=== PATIENT | male | born 1970 | race Caucasian/White ===

== ENCOUNTER 2020-10-30 13:59 | Day surgery (SDC) | payer OTHER ==
[2020-10-25 15:57] LABS: BASOPHILS % (AUTO) 0.5 % (0-1); EOSINOPHILS # (AUTO) 0.1 X10'3 (0-0.9); HEMATOCRIT 42.3 % (42.0-52.0); HEMOGLOBIN 14.3 g/dl (14.0-17.9); LYMPHOCYTES # (AUTO) 2.2 X10'3 (1.1-4.8); LYMPHOCYTES % (AUTO) 29.4 % (21-51); MEAN CORPUSCULAR HEMOGLOBIN 31.3 PG (27.0-31.0); MEAN CORPUSCULAR HGB CONC 33.9 g/dL (33.0-36.5); MEAN CORPUSCULAR VOLUME 92.4 FL (78-98); MEAN PLATELET VOLUME 9.7 FL (7.4-10.4); MONOCYTES # (AUTO) 0.8 X10'3 (0-0.9); MONOCYTES % (AUTO) 9.9 % (2-12); NEUTROPHILS # (AUTO) 4.5 X10'3 (1.8-7.7); NEUTROPHILS % (AUTO) 59.2 % (42-75); PLATELET COUNT 149 X10'3 (140-440); RED BLOOD COUNT 4.58 X10'6 (4.70-6.10); RED CELL DISTRIBUTION WIDTH 12.5 % (11.5-14.5); WHITE BLOOD COUNT 7.6 X10'3 (4.5-11.0)
[2020-10-25 16:08] LABS: PARTIAL THROMBOPLASTIN TIME 25 SECONDS (22-32)
[2020-10-25 16:17] LABS: ALBUMIN 3.8 G/DL (3.4-5.0); ANION GAP 9 (8-16); BLOOD UREA NITROGEN 20 MG/DL (7-18); BUN/CREATININE RATIO 21.7 (5.4-32.0); CALCIUM 8.8 MG/DL (8.5-10.1); CHLORIDE 106 MMOL/L (99-107); CREATININE 0.92 MG/DL (0.60-1.10); GLUCOSE 106 MG/DL (70-104); SODIUM 141 MMOL/L (135-145); TOTAL CARBON DIOXIDE 26.5 MMOL/L (24-32); eGFR 87 ML/MIN
[2020-10-25 16:19] LABS: POTASSIUM 4.2 MMOL/L (3.5-5.1)
[2020-10-30] VITALS (8 sets, daily range): BP systolic 119–154; BP diastolic 68–91
[~2020-10-30] VITALS: Ht 175.3 cm; Wt 104.0 kg
[2020-10-30] MEDS ORDERED: LORazepam 0.5 MG tablet PO PRN (14:15)
[2020-10-30] MEDS ORDERED: diphenhydrAMINE 25mg capsule PO PRN (14:15)
[2020-10-30] MEDS ORDERED: normal saline 1,000 ML IV SCH (14:15)
[2020-10-30] MEDS ORDERED: ACET-1008 PO (14:29)
[2020-10-30] MEDS ORDERED: NICO-807 BC (14:29)
[2020-10-30] MEDS ORDERED: VITAMIN B12 PO (14:29)
[2020-10-30] MEDS ORDERED: iohexol 350MG/ML 100ml bottle IV ONE (15:45)
[2020-10-30] MEDS ORDERED: LIDOcaine 1% (10mg/ml)w/preservative injection 20ml MDV ONE (15:45)
[2020-10-30] MEDS ORDERED: midazolam 2 mg/2 ml injection ONE ×2 (15:45→16:10)
[2020-10-30] MEDS ORDERED: fentaNYL/PF 50MCG/1 ML 2ML syringe ONE (15:45)
[2020-10-30] MEDS ORDERED: OXAZEpam 15mg capsule PO PRN (17:05)
[2020-10-30] MEDS ORDERED: ondansetron/PF 4mg/2ml inj IV PRN (17:05)
[2020-10-30] MEDS ORDERED: proCHLORperazine 10 MG/2 ml inj IV PRN (17:05)
== END 2020-10-30 19:00 | disposition home or self-care (01) ==
LOC: SSTAY O 13:59
PROVIDERS: ATTEND Internal Medicine Interventional Cardiology
DX: R94.30 Abnormal result of cardiovascular function study, unspecified (principal); Z79.899 Other long term (current) drug therapy; Z82.49 Family history of ischemic heart disease and other diseases of the circulatory system; Z98.890 Other specified postprocedural states; Z72.89 Other problems related to lifestyle; E78.49 Other hyperlipidemia; I35.0 Nonrheumatic aortic (valve) stenosis
CPT/HCPCS: 36415; 80048; 85025; 85610; 85730; 93005; 93458; C1769; J1644; J2001; J2250; J3010; J7030; Q0163; Q9967; 99152; A4620; A6258

== ENCOUNTER 2023-05-14 20:54 | Inpatient (IN) | payer OTHER ==
[~2023-05-14] VITALS: Ht 175.3 cm; Wt 111.8 kg
[~2023-05-14 20:54] MED LIST: ACET-1008 PO; NICO-807 BC; VITAMIN B12 PO
[2023-05-14] MEDS ORDERED: ondansetron/PF 4mg/2ml inj IV STA (21:08)
[2023-05-14] MEDS ORDERED: normal saline 1000ml 1,000 ML IVB ONE (21:10)
[2023-05-14 21:24] LABS: BASOPHILS % (AUTO) 0.4 % (0-1); EOSINOPHILS % (AUTO) 0.3 % (0-6); HEMATOCRIT 47.4 % (42.0-52.0); HEMOGLOBIN 15.8 g/dl (14.0-17.9); LYMPHOCYTES % (AUTO) 16.4 % (21-51); MEAN CORPUSCULAR HEMOGLOBIN 30.3 PG (27.0-31.0); MEAN CORPUSCULAR HGB CONC 33.4 g/dL (33.0-36.5); MEAN CORPUSCULAR VOLUME 90.8 FL (78-98); MEAN PLATELET VOLUME 9.7 FL (7.4-10.4); MONOCYTES % (AUTO) 8.3 % (2-12); NEUTROPHILS # (AUTO) 9.2 X10'3 (1.8-7.7); NEUTROPHILS % (AUTO) 74.6 % (42-75); PLATELET COUNT 158 X10'3 (140-440); RED BLOOD COUNT 5.22 X10'6 (4.70-6.10); RED CELL DISTRIBUTION WIDTH 13.1 % (11.5-14.5); WHITE BLOOD COUNT 12.3 X10'3 (4.5-11.0)
[2023-05-14] MEDS ORDERED: morphine 4 MG/ML inj SYRINge IV ONE (21:30)
[2023-05-14 21:36] LABS: ALANINE AMINOTRANSFERASE 41 U/L (12-78); ALBUMIN 4.5 G/DL (3.4-5.0); ALBUMIN/GLOBULIN RATIO 1.1 (1.1-1.5); ALKALINE PHOSPHATASE 85 IU/L (46-116); ANION GAP 10 (8-16); ASPARTATE AMINO TRANSFERASE 25 U/L (10-37); BILIRUBIN,TOTAL 0.5 MG/DL (0.1-1.0); BLOOD UREA NITROGEN 16 MG/DL (7-18); BUN/CREATININE RATIO 16.3 (10.0-20.0); CALCIUM 9.7 MG/DL (8.5-10.1); CHLORIDE 102 MMOL/L (99-107); CREATININE 0.98 MG/DL (0.60-1.10); GLUCOSE 116 MG/DL (70-104); LIPASE 112 U/L (73-393); SODIUM 141 MMOL/L (135-145); TOTAL CARBON DIOXIDE 28.9 MMOL/L (24-32); TOTAL PROTEIN 8.5 G/DL (6.4-8.2); eGFR 80 ML/MIN
--- NOTE | 2023-05-14 22:02 | NUR ---
PT UNABLE TO PRODUCE URINE SAMPLE
[2023-05-14] MEDS ORDERED: ondansetron/PF 4mg/2ml inj IV ONE (23:10)
[2023-05-14] MEDS ORDERED: ketorolac trometh. 30mg/ml inj. IV ONE (23:10)
[2023-05-14] MEDS ORDERED: dicyclomine 10 MG capsule PO ONE (23:10)
[2023-05-14] MEDS ORDERED: famotidine/PF 10 mg/ml inj IV ONE (23:10)
[2023-05-15 01:05] LABS: MAGNESIUM 2.3 MG/DL (1.5-2.4)
--- NOTE | 2023-05-15 01:26 | NUR ---
PER DR SALAMANCA NO NEED TO STRAIGHT CATH FOR URINE SAMPLE AT THIS TIME.
[2023-05-15] MEDS ORDERED: ondansetron/PF 4mg/2ml inj IV PRN (01:30)
[2023-05-15] MEDS ORDERED: acetaminophen 325mg tablet PO PRN (01:30)
[2023-05-15] MEDS ORDERED: magnesium 4gm in 100ml NS 100 ML IV PRN (01:30)
[2023-05-15] MEDS ORDERED: potassium Cl 40MEQ/1/2NS 520ml 520 ML IV PRN (01:30)
[2023-05-15] MEDS ORDERED: magnesium 2GM in 50ml NS 50 ML IV PRN (01:30)
[2023-05-15] MEDS ORDERED: magnesium Cl slow-release 64mg tablet PO PRN (01:30)
[2023-05-15] MEDS ORDERED: potassium Cl 20 mEq SR tablet PO PRN ×2 (01:30)
[2023-05-15] MEDS ORDERED: morphine 2 MG/ML inj. syringe IV PRN ×2 (01:30)
[2023-05-15] MEDS: normal saline 1000ml 1,000 ML IV SCH ×3 (01:39→20:50)
[2023-05-15 02:34] LABS: MAGNESIUM 2.2 MG/DL (1.5-2.4); POTASSIUM 4.5 MMOL/L (3.5-5.1)
[2023-05-15] MEDS ORDERED: HYDROmorphone inj. 0.5 MG/0.5 ML DISP.SYRIN IV ONE (03:10)
[2023-05-15 03:26] LABS: COLOR,URINE YELLOW (Yellow); GLUCOSE, URINE NEGATIVE (Neg); KETONES,URINE 15 mg/dl (Neg); LEUKOCYTE ESTERASE ,URINE NEGATIVE (Neg); NITRITES, URINE NEGATIVE (Neg); OCCULT BLOOD,URINE NEGATIVE (Neg); PH,URINE 5.5 (4.8-8.0); PROTEIN,URINE NEGATIVE (Neg); UROBILINOGEN,URINE 0.2 E.U/dL (0.2-1.0)
[2023-05-15 03:31] LABS: CLARITY,URINE SLIGHTLY CLOUDY (Clear); UA COLLECTION TYPE CLN CATCH MIDSTREAM
--- NOTE | 2023-05-15 03:31 | NUR ---
PT PLACED ON HOSPITAL BED
[2023-05-15 03:32] LABS: MUCUS STRANDS MODERATE /LPF (Neg); SQUAMOUS EPITHELIAL CELL,UR MODERATE /LPF (FEW)
[2023-05-15 03:34] LABS: BACTERIA,URINE FEW /HPF (Neg); RBC,URINE 0-2 /HPF (0-2)
[2023-05-15 03:49] LABS: URINE AMPHETAMINE SCREEN NEGATIVE (Neg); URINE BARBITUATE SCREEN NEGATIVE (Neg); URINE BENZODIAZEPINES SCREEN NEGATIVE (Neg); URINE CANNABINOID SCREEN NEGATIVE (Neg); URINE COCAINE SCREEN NEGATIVE (Neg); URINE METHADONE SCREEN NEGATIVE (Neg); URINE OPIATE SCREEN POSITIVE (Neg); URINE PHENCYCLIDINE SCREEN NEGATIVE (Neg)
[2023-05-15] MEDS ORDERED: IBUP-1985 PO (03:53)
[2023-05-15] MEDS: morphine 2 MG/ML inj. syringe IV PRN ×2 (05:43→08:20)
[2023-05-15] MEDS: K and/or MAG REPLACEMENT MC SCH ×2 (08:00→20:00)
[2023-05-15] MEDS ORDERED: diatr meglu/diatrizoate 30ml oral sol.-(3 dose) bottle ONE (08:00)
--- NOTE | 2023-05-15 18:35 | NUR ---
assumed care from shadow, rn
--- NOTE | 2023-05-15 20:01 | NUR ---
Patient in room ED 4. I have received report from ROBIN Thompson and had the opportunity to ask questions and assume patient care.
[2023-05-15 21:00] VITALS: BP 130/84
--- NOTE | 2023-05-15 22:00 | NUR ---
Patient in room [facility]TH[facility] 4012. I have received report from ROBIN Diaz and had the opportunity to ask questions and assume patient care.
[2023-05-16] MEDS: normal saline 1000ml 1,000 ML IV SCH (05:56)
[2023-05-16 06:00] VITALS: BP 129/85
--- NOTE | 2023-05-16 06:23 | NUR ---
Problems reprioritized. Patient report given, questions answered & plan of care reviewed with ROBIN Chacko.
[2023-05-16 07:37] LABS: BASOPHILS % (AUTO) 0.4 % (0-1); EOSINOPHILS # (AUTO) 0.1 X10'3 (0-0.9); HEMATOCRIT 42.1 % (42.0-52.0); HEMOGLOBIN 13.9 g/dl (14.0-17.9); LYMPHOCYTES # (AUTO) 1.7 X10'3 (1.1-4.8); LYMPHOCYTES % (AUTO) 28.4 % (21-51); MEAN CORPUSCULAR HEMOGLOBIN 30.6 PG (27.0-31.0); MEAN CORPUSCULAR VOLUME 92.8 FL (78-98); MEAN PLATELET VOLUME 10.9 FL (7.4-10.4); MONOCYTES # (AUTO) 0.7 X10'3 (0-0.9); MONOCYTES % (AUTO) 12.4 % (2-12); NEUTROPHILS # (AUTO) 3.4 X10'3 (1.8-7.7); NEUTROPHILS % (AUTO) 56.8 % (42-75); PLATELET COUNT 132 X10'3 (140-440); RED BLOOD COUNT 4.53 X10'6 (4.70-6.10); RED CELL DISTRIBUTION WIDTH 13.4 % (11.5-14.5)
[2023-05-16 07:58] LABS: ALANINE AMINOTRANSFERASE 25 U/L (12-78); ALBUMIN 3.2 G/DL (3.4-5.0); ALKALINE PHOSPHATASE 59 IU/L (46-116); ANION GAP 9 (8-16); ASPARTATE AMINO TRANSFERASE 19 U/L (10-37); BILIRUBIN,TOTAL 0.6 MG/DL (0.1-1.0); BLOOD UREA NITROGEN 17 MG/DL (7-18); BUN/CREATININE RATIO 19.3 (10.0-20.0); CALCIUM 8.1 MG/DL (8.5-10.1); CHLORIDE 106 MMOL/L (99-107); CREATININE 0.88 MG/DL (0.60-1.10); GLUCOSE 101 MG/DL (70-104); POTASSIUM 3.8 MMOL/L (3.5-5.1); SODIUM 141 MMOL/L (135-145); TOTAL PROTEIN 6.5 G/DL (6.4-8.2); eGFR 90 ML/MIN
[2023-05-16] MEDS: K and/or MAG REPLACEMENT MC SCH ×2 (08:00→20:00)
[2023-05-16 10:00] VITALS: BP 128/82
[2023-05-16] MEDS ORDERED: PSYL0.4C2 PO (10:22)
[2023-05-16] MEDS ORDERED: DOCU-148 PO (10:22)
--- NOTE | 2023-05-16 13:42 | NUR ---
ER radiology unable to view orders for abdomen 2 view
[2023-05-16] MEDS: dextrose 5%-1/2 normal saline 1,000 ML IV SCH (17:05)
[2023-05-16 18:00] VITALS: BP 125/76
--- NOTE | 2023-05-16 18:00 | NUR ---
New PIV placed. 2 attempts. Pt. tolerated well. NG placed to L nare 14 catheter size. Pt. tolerated well during insertion. Scant sanguinous OP. Placement checked. NG to low intermittent suction. Pt. anxious and painful after procedure. States he can "feel the tube" as he swallows. Reassured. Resident called. Tordol given. See new orders.
[2023-05-16] MEDS: ketorolac tromethamine 15mg/ml inj. IV PRN (18:32)
[2023-05-16] MEDS ORDERED: LORazepam 2 mg/ml vial IV ONE (18:40)
--- NOTE | 2023-05-16 19:00 | NUR ---
Patient in room [facility]TH[facility] 4012. I have received report from Ginna KELLY and had the opportunity to ask questions and assume patient care.
--- NOTE | 2023-05-16 19:03 | NUR ---
Gave report to Shelbie KELLY.
--- NOTE | 2023-05-16 19:45 | NUR ---
Problems reprioritized. Patient report given, questions answered & plan of care reviewed with Tod garcia RN.
--- NOTE | 2023-05-16 20:00 | NUR ---
Patient in room [facility]TH[facility] 4012. I have received report from SHANNON KELLY and had the opportunity to ask questions and assume patient care.
[2023-05-16 22:00] VITALS: BP 146/95
[2023-05-17] MEDS: ketorolac tromethamine 15mg/ml inj. IV PRN ×4 (01:45→21:03)
[2023-05-17] MEDS: dextrose 5%-1/2 normal saline 1,000 ML IV SCH ×2 (04:29→14:46)
[2023-05-17 06:30] VITALS: BP 154/92
--- NOTE | 2023-05-17 06:30 | NUR ---
Patient in room [facility]TH[facility] 4012. I have received report from Tod and had the opportunity to ask questions and assume patient care.
--- NOTE | 2023-05-17 06:30 | NUR ---
Problems reprioritized. Patient report given, questions answered & plan of care reviewed with JAYE KELLY.
[2023-05-17] MEDS: K and/or MAG REPLACEMENT MC SCH ×2 (07:10→20:00)
[2023-05-17 08:45] LABS: BASOPHILS % (AUTO) 0.2 % (0-1); EOSINOPHILS # (AUTO) 0.1 X10'3 (0-0.9); EOSINOPHILS % (AUTO) 2.1 % (0-6); HEMATOCRIT 39.3 % (42.0-52.0); HEMOGLOBIN 13.3 g/dl (14.0-17.9); LYMPHOCYTES # (AUTO) 1.6 X10'3 (1.1-4.8); LYMPHOCYTES % (AUTO) 23.8 % (21-51); MEAN CORPUSCULAR HEMOGLOBIN 30.8 PG (27.0-31.0); MEAN CORPUSCULAR HGB CONC 33.7 g/dL (33.0-36.5); MEAN CORPUSCULAR VOLUME 91.2 FL (78-98); MEAN PLATELET VOLUME 10.4 FL (7.4-10.4); MONOCYTES # (AUTO) 0.7 X10'3 (0-0.9); MONOCYTES % (AUTO) 10.4 % (2-12); NEUTROPHILS # (AUTO) 4.2 X10'3 (1.8-7.7); NEUTROPHILS % (AUTO) 63.5 % (42-75); PLATELET COUNT 131 X10'3 (140-440); RED BLOOD COUNT 4.31 X10'6 (4.70-6.10); RED CELL DISTRIBUTION WIDTH 12.9 % (11.5-14.5); WHITE BLOOD COUNT 6.7 X10'3 (4.5-11.0)
[2023-05-17 09:00] LABS: ALANINE AMINOTRANSFERASE 25 U/L (12-78); ALBUMIN 3.2 G/DL (3.4-5.0); ALKALINE PHOSPHATASE 52 IU/L (46-116); ANION GAP 8 (8-16); ASPARTATE AMINO TRANSFERASE 26 U/L (10-37); BILIRUBIN,TOTAL 0.5 MG/DL (0.1-1.0); BLOOD UREA NITROGEN 10 MG/DL (7-18); CALCIUM 8.4 MG/DL (8.5-10.1); CHLORIDE 102 MMOL/L (99-107); CREATININE 0.77 MG/DL (0.60-1.10); GLUCOSE 111 MG/DL (70-104); MAGNESIUM 1.9 MG/DL (1.5-2.4); POTASSIUM 3.5 MMOL/L (3.5-5.1); SODIUM 139 MMOL/L (135-145); TOTAL CARBON DIOXIDE 29.4 MMOL/L (24-32); TOTAL PROTEIN 6.5 G/DL (6.4-8.2); eGFR > 90 ML/MIN
[2023-05-17 10:00] VITALS: BP 130/77
--- NOTE | 2023-05-17 18:46 | NUR ---
Patient in room [facility]TH[facility] 4012. I have received report from JAYE KELLY and had the opportunity to ask questions and assume patient care.
[2023-05-17 22:00] VITALS: BP 134/73
[2023-05-18] MEDS: dextrose 5%-1/2 normal saline 1,000 ML IV SCH ×3 (02:07→19:05)
[2023-05-18 06:00] VITALS: BP 152/88
--- NOTE | 2023-05-18 06:06 | NUR ---
PATIENT UNHOOKED FROM SUCTION AND IVF'S TO AMBULATE IN HALLWAYS. C/O HEADACHE, POST-NASAL DRIP AND SORE THROAT. TORADOL GIVEN IVP. STILL NO BM, OTHER THAN SMALL SMEARS. REPORT TO EARLY SHIFT
--- NOTE | 2023-05-18 06:45 | NUR ---
Patient in room ORTH[facility] 4012B. I have received report from ROBIN DU and had the opportunity to ask questions and assume patient care.
[2023-05-18 07:44] LABS: ALANINE AMINOTRANSFERASE 25 U/L (12-78); ALBUMIN 3.3 G/DL (3.4-5.0); ALKALINE PHOSPHATASE 63 IU/L (46-116); ANION GAP 10 (8-16); ASPARTATE AMINO TRANSFERASE 20 U/L (10-37); BILIRUBIN,TOTAL 0.6 MG/DL (0.1-1.0); BLOOD UREA NITROGEN 9 MG/DL (7-18); BUN/CREATININE RATIO 11.5 (10.0-20.0); CALCIUM 8.3 MG/DL (8.5-10.1); CHLORIDE 100 MMOL/L (99-107); CREATININE 0.78 MG/DL (0.60-1.10); GLUCOSE 104 MG/DL (70-104); MAGNESIUM 1.9 MG/DL (1.5-2.4); POTASSIUM 3.3 MMOL/L (3.5-5.1); SODIUM 139 MMOL/L (135-145); TOTAL CARBON DIOXIDE 29.4 MMOL/L (24-32); TOTAL PROTEIN 6.7 G/DL (6.4-8.2); eGFR > 90 ML/MIN
[2023-05-18 07:55] LABS: BASOPHILS % (AUTO) 0.1 % (0-1); EOSINOPHILS # (AUTO) 0.1 X10'3 (0-0.9); EOSINOPHILS % (AUTO) 1.2 % (0-6); HEMATOCRIT 40.6 % (42.0-52.0); HEMOGLOBIN 13.5 g/dl (14.0-17.9); LYMPHOCYTES # (AUTO) 1.4 X10'3 (1.1-4.8); LYMPHOCYTES % (AUTO) 17.9 % (21-51); MEAN CORPUSCULAR HEMOGLOBIN 30.2 PG (27.0-31.0); MEAN CORPUSCULAR HGB CONC 33.2 g/dL (33.0-36.5); MEAN CORPUSCULAR VOLUME 90.9 FL (78-98); MEAN PLATELET VOLUME 9.7 FL (7.4-10.4); MONOCYTES # (AUTO) 0.9 X10'3 (0-0.9); MONOCYTES % (AUTO) 11.8 % (2-12); NEUTROPHILS # (AUTO) 5.3 X10'3 (1.8-7.7); PLATELET COUNT 133 X10'3 (140-440); RED BLOOD COUNT 4.46 X10'6 (4.70-6.10); RED CELL DISTRIBUTION WIDTH 12.7 % (11.5-14.5); WHITE BLOOD COUNT 7.6 X10'3 (4.5-11.0)
[2023-05-18] MEDS: K and/or MAG REPLACEMENT MC SCH ×2 (08:00→21:19)
[2023-05-18 10:00] VITALS: BP 130/81
[2023-05-18] MEDS ORDERED: potassium Cl 20 mEq SR tablet PO PRN ×2 (13:20)
[2023-05-18] MEDS ORDERED: magnesium 2GM in 50ml NS 50 ML IV PRN (13:20)
[2023-05-18] MEDS ORDERED: potassium Cl 40MEQ/1/2NS 520ml 520 ML IV PRN (13:20)
[2023-05-18] MEDS ORDERED: magnesium 4gm in 100ml NS 100 ML IV PRN (13:20)
[2023-05-18] MEDS ORDERED: Chloraseptic (Phenol) Spray 177ml MM PRN (15:10)
[2023-05-18] MEDS: ketorolac tromethamine 15mg/ml inj. IV PRN (17:41)
[2023-05-18] MEDS ORDERED: potassium Cl 40MEQ/1/2NS 520ml 520 ML IV ONE (17:45)
[2023-05-18 18:00] VITALS: BP 140/71
--- NOTE | 2023-05-18 18:23 | NUR ---
Problems reprioritized. Patient report given, questions answered & plan of care reviewed with ROBIN FAITH.
--- NOTE | 2023-05-18 18:25 | NUR ---
Patient in room [facility]TH[facility] 4012. I have received report from Tl michaud and had the opportunity to ask questions and assume patient care.
[2023-05-18] MEDS ORDERED: mineral oil 133ml enema RC ONE (19:30)
[2023-05-18 22:00] VITALS: BP 123/57
[2023-05-19] MEDS: dextrose 5%-1/2 normal saline 1,000 ML IV SCH ×2 (03:48→16:03)
[2023-05-19 06:00] VITALS: BP 137/83
--- NOTE | 2023-05-19 06:42 | NUR ---
Problems reprioritized. Patient report given, questions answered & plan of care reviewed with Natali KELLY.
[2023-05-19 06:45] LABS: BASOPHILS % (AUTO) 0.2 % (0-1); EOSINOPHILS # (AUTO) 0.1 X10'3 (0-0.9); HEMATOCRIT 39.9 % (42.0-52.0); HEMOGLOBIN 13.7 g/dl (14.0-17.9); LYMPHOCYTES # (AUTO) 1.7 X10'3 (1.1-4.8); LYMPHOCYTES % (AUTO) 20.7 % (21-51); MEAN CORPUSCULAR HEMOGLOBIN 30.9 PG (27.0-31.0); MEAN CORPUSCULAR HGB CONC 34.3 g/dL (33.0-36.5); MEAN CORPUSCULAR VOLUME 90.2 FL (78-98); MONOCYTES # (AUTO) 0.9 X10'3 (0-0.9); NEUTROPHILS # (AUTO) 5.5 X10'3 (1.8-7.7); NEUTROPHILS % (AUTO) 67.1 % (42-75); PLATELET COUNT 143 X10'3 (140-440); RED BLOOD COUNT 4.42 X10'6 (4.70-6.10); RED CELL DISTRIBUTION WIDTH 13.2 % (11.5-14.5); WHITE BLOOD COUNT 8.2 X10'3 (4.5-11.0)
[2023-05-19 06:52] LABS: ALBUMIN 3.4 G/DL (3.4-5.0); ANION GAP 12 (8-16); BILIRUBIN,TOTAL 0.7 MG/DL (0.1-1.0); BLOOD UREA NITROGEN 9 MG/DL (7-18); CALCIUM 8.6 MG/DL (8.5-10.1); CHLORIDE 100 MMOL/L (99-107); CREATININE 0.82 MG/DL (0.60-1.10); GLUCOSE 104 MG/DL (70-104); MAGNESIUM 1.9 MG/DL (1.5-2.4); POTASSIUM 3.4 MMOL/L (3.5-5.1); SODIUM 139 MMOL/L (135-145); TOTAL CARBON DIOXIDE 26.8 MMOL/L (24-32); eGFR > 90 ML/MIN
[2023-05-19 06:53] LABS: ALANINE AMINOTRANSFERASE 28 U/L (12-78); ALBUMIN/GLOBULIN RATIO 0.9 (1.1-1.5); ALKALINE PHOSPHATASE 65 IU/L (46-116); ASPARTATE AMINO TRANSFERASE 20 U/L (10-37)
[2023-05-19 10:00] VITALS: BP 100/61
[2023-05-19] MEDS: K and/or MAG REPLACEMENT MC SCH ×2 (10:50→20:00)
[2023-05-19] MEDS: diatr meglu/diatrizoate 30ml oral sol.-(3 dose) bottle PO SCH ×3 (13:09→19:08)
[2023-05-19 18:00] VITALS: BP 136/79
--- NOTE | 2023-05-19 18:38 | NUR ---
Problems reprioritized. Patient report given, questions answered & plan of care reviewed with ROBIN FAITH.
[2023-05-19] MEDS ORDERED: iohexol 350MG/ML 100ml bottle IV ONE (18:47)
[2023-05-19] MEDS ORDERED: iohexol 300mg/ml 100ml inj. ONE (18:48)
--- NOTE | 2023-05-19 18:50 | NUR ---
Patient in room [facility]TH[facility] 4012. I have received report from Natali KELLY and had the opportunity to ask questions and assume patient care.
[2023-05-19 19:00] VITALS: BP 136/79
[2023-05-19 22:00] VITALS: BP 138/82
[2023-05-19] MEDS ORDERED: LORazepam 2 mg/ml vial IV PRN (22:25)
[2023-05-20] MEDS: dextrose 5%-1/2 normal saline 1,000 ML IV SCH (01:05)
[2023-05-20 06:00] VITALS: BP 148/89
--- NOTE | 2023-05-20 06:26 | NUR ---
Patient in room [facility]TH[facility] 4012B. I have received report ROBIN FAITH from and had the opportunity to ask questions and assume patient care.
--- NOTE | 2023-05-20 06:35 | NUR ---
Problems reprioritized. Patient report given, questions answered & plan of care reviewed with Natali KELLY.
[2023-05-20 06:57] LABS: BASOPHILS % (AUTO) 0.3 % (0-1); EOSINOPHILS # (AUTO) 0.1 X10'3 (0-0.9); EOSINOPHILS % (AUTO) 1.9 % (0-6); HEMOGLOBIN 13.6 g/dl (14.0-17.9); LYMPHOCYTES # (AUTO) 1.4 X10'3 (1.1-4.8); LYMPHOCYTES % (AUTO) 18.7 % (21-51); MEAN CORPUSCULAR HEMOGLOBIN 30.1 PG (27.0-31.0); MEAN CORPUSCULAR HGB CONC 33.1 g/dL (33.0-36.5); MEAN CORPUSCULAR VOLUME 90.9 FL (78-98); MEAN PLATELET VOLUME 9.6 FL (7.4-10.4); MONOCYTES # (AUTO) 0.8 X10'3 (0-0.9); MONOCYTES % (AUTO) 10.9 % (2-12); NEUTROPHILS # (AUTO) 5.3 X10'3 (1.8-7.7); NEUTROPHILS % (AUTO) 68.2 % (42-75); PLATELET COUNT 139 X10'3 (140-440); RED BLOOD COUNT 4.51 X10'6 (4.70-6.10); RED CELL DISTRIBUTION WIDTH 12.5 % (11.5-14.5); WHITE BLOOD COUNT 7.7 X10'3 (4.5-11.0)
[2023-05-20 07:21] LABS: ALANINE AMINOTRANSFERASE 29 U/L (12-78); ALBUMIN 3.1 G/DL (3.4-5.0); ALBUMIN/GLOBULIN RATIO 0.9 (1.1-1.5); ALKALINE PHOSPHATASE 65 IU/L (46-116); ANION GAP 8 (8-16); ASPARTATE AMINO TRANSFERASE 22 U/L (10-37); BILIRUBIN,TOTAL 0.7 MG/DL (0.1-1.0); BLOOD UREA NITROGEN 8 MG/DL (7-18); BUN/CREATININE RATIO 9.2 (10.0-20.0); CALCIUM 8.6 MG/DL (8.5-10.1); CHLORIDE 100 MMOL/L (99-107); CREATININE 0.87 MG/DL (0.60-1.10); GLUCOSE 119 MG/DL (70-104); POTASSIUM 3.6 MMOL/L (3.5-5.1); SODIUM 137 MMOL/L (135-145); TOTAL CARBON DIOXIDE 28.7 MMOL/L (24-32); TOTAL PROTEIN 6.6 G/DL (6.4-8.2); eGFR > 90 ML/MIN
[2023-05-20 11:00] VITALS: BP 149/71
--- NOTE | 2023-05-20 11:24 | NUR ---
Initial: Pt admit for c/o abdominal distention/constipation and SBO. CT scan on 05/19 indicate possible gallstones per EMR. Pt has been mainly NPO for 4 days but today has been advanced to clear liquid diet. Pt continues on D5/NS at 100ml/hr providing 408kcals/day. NGT removal has been ordered today per EMR. LBM on 05/15 noted given two enemas on 05/18 with no other bowel care in EMR. Per resident note pt passed gas after the first enema. Will continue to follow closely. Recommendations: 1.ADAT to regular 2.bowel care per physician 3.scaled wt this admit; subsequent weekly wts Addendum: 05/20/23 at [address]125 by Yani Hernandez Intern RD Amended: Links added. Addendum: 05/20/23 at [address] I have reviewed and agree with note.
--- NOTE | 2023-05-20 14:55 | NUR ---
PATIENT STABLE AND APPROPRIATE FOR DISCHARGE, IV REMOVED, EDUCATION GIVEN, NEW MEDS E-SCRIPTED TO PREFERRED PHARMACY, ALL BELONGINGS SENT WITH PATIENT, PATIENT TAKEN TO LOBBY BY WHEELCHAIR TO AN AWAITING CAR WHERE WILL TAKE THE PATIENT HOME
== END 2023-05-20 14:56 | disposition home or self-care (01) | DRG 389 ==
LOC: ER 20:54 → ED HOLD 05-15 01:33 → ORTHO 4S 05-15 20:15
PROVIDERS: ADMIT Internal Medicine; ATTEND Internal Medicine
PROC: 0D9670Z Drainage of Stomach with Drainage Device, Via Natural or Artificial Opening (ICD-10-PCS; principal; 2023-05-16)
PROC: BW211ZZ Computerized Tomography (CT Scan) of Abdomen and Pelvis using Low Osmolar Contrast (ICD-10-PCS; 2023-05-19)
DX: K56.41 Fecal impaction (principal); K56.600 Partial intestinal obstruction, unspecified as to cause; F17.220 Nicotine dependence, chewing tobacco, uncomplicated; Z83.3 Family history of diabetes mellitus; Z95.0 Presence of cardiac pacemaker; Z79.899 Other long term (current) drug therapy; Z71.6 Tobacco abuse counseling
CPT/HCPCS: 36415; 74018; 74019; 74176; 74177; 74248; 80053; 80305; 81001; 83605; 83690; 83735; 84132; 84145; 84484; 85025; 87081; 87088; 93005; 99285; G0378; J1170; J1885; J2060; J2270; J2405; J3480; J3490; J7030; Q9963; Q9967